=== PATIENT | female | born 1985 | race Hispanic/Latino ===

== ENCOUNTER 2018-12-27 20:42 | Emergency (ER) | payer OTHER ==
[2018-12-27] MEDS ORDERED: DEXAMETHASONE SOD PHOSPHATE 10MG/ML 1ML VIAL ONE (21:39)
[2018-12-27] MEDS ORDERED: IPRATROPIUM/ALBUTEROL SULFATE 3 ML SOLUTION IH ONE (22:21)
== END 2018-12-27 22:35 | disposition home or self-care (01) ==
LOC: EDH 20:42
DX: J20.9 Acute bronchitis, unspecified (principal)
CPT/HCPCS: 94640; 96372; 99283; J1100